=== PATIENT | male | born 1965 | race Caucasian/White ===

== ENCOUNTER 2018-06-19 06:07 | Day surgery (SDC) | payer OTHER ==
[2018-06-18 10:59] VITALS: BMI 31.9
[2018-06-19] MEDS ORDERED: Lidocaine 1% (PF) 30 ML VIAL ONE ×2 (06:25→06:51)
[2018-06-19] MEDS ORDERED: Clindamycin/D5W 600 mg/50 ml Premix Bag ONE (06:42)
[2018-06-19 06:50] LABS: #Basophils 0.1 thou/uL (0.0-0.2); #Eosinphils 0.2 thou/uL (0.0-0.7); #Lymphocytes 2.1 thou/uL (1.20-3.40); #Monocytes 0.5 thou/uL (0.11-0.59); #Neutrophils 3.7 thou/uL (1.40-6.50); %Basophils 1.5 % (0.0-1.0); %Eosinophils 2.8 % (0.0-10.0); %Monocytes 8.2 % (0.0-10.0); %Neutrophils 55.5 % (42.0-75.0); Hemoglobin 14.1 g/dL (14.0-18.0); Mean Corpuscular HGB CONC 32.4 g/dL (32.0-36.0); Mean Corpuscular Hemoglobin 29.2 pg (27.0-31.0); Mean Corpuscular Volume 90.2 fL (78.0-98.0); Mean Platelet Volume 7.4 fL (7.4-10.4); Platelet Count 397 thou/uL (130-400); RBC Distribution Width 11.8 % (11.5-14.5); Red Blood Cell (RBC) Count 4.83 mill/uL (4.70-6.10); White Blood Cell (WBC) Count 6.6 thou/uL (4.8-10.8)
[2018-06-19] MEDS ORDERED: Fentanyl 250 MCG/5 ML VIAL ONE (06:55)
[2018-06-19 07:09] LABS: Anion Gap 14 mmol/L (10-20); BUN (Urea Nitrogen) 16 mg/dL (8.4-25.7); Calc. Creatinine Clearance 125 mL/min (70-130); Calcium 9.5 mg/dL (7.8-10.44); Carbon Dioxide 21 mmol/L (22-29); Chloride 108 mmol/L (98-107); Estimated GFR-MDRD 87; Glucose 99 mg/dL (70-105); Potassium 4.1 mmol/L (3.5-5.1); Sodium 139 mmol/L (136-145)
--- NOTE | 2018-06-19 12:30 | OP ---
DATE OF PROCEDURE: 06/19/2018 PREOPERATIVE DIAGNOSIS: Left-sided cubital tunnel syndrome. POSTOPERATIVE DIAGNOSIS: Left-sided cubital tunnel syndrome. PROCEDURES PERFORMED: 1. Left open cubital tunnel release with ulnar nerve transposition. 2. Removal of the bony loose body just distal to the cubital tunnel, which was approximately 2 cm in diameter. 3. Placement of long arm splint left upper extremity. RECYCLING CENTER OPERATOR: None. ESTIMATED BLOOD LOSS: Minimal. COMPLICATIONS: None. ANESTHESIA: He had general anesthetic. DISPOSITION: He did go to Recovery Room in stable condition. INDICATIONS: This 53-year-old male comes in complaining of left hand numbness, tingling, and weakness. On EMG/NCV, he had significant cubital tunnel and at this time, he opted to have his nerve release. DESCRIPTION OF PROCEDURE: After all appropriate consent forms were explained and signed, he was taken to the operating room and at this time was given general anesthetic. Once the anesthesia was appropriate, tourniquet was placed on left arm as proximal as possible and the left upper extremity was prepped and draped in standard surgical fashion. At this time, the limb was exsanguinated and tourniquet was taken to 300 mmHg. Under loupe magnification, a 10 blade was used to incise down through skin only. Bipolar cautery was then used to coagulate any brisk venous bleeding. From here forward, scissor dissection was used using loupe magnification to dissect out the ulnar nerve. Proximally, the nerve appeared to be in good condition, appeared fairly normal in appearance and was released all the way to mid brachium. As we came down through the cubital tunnel, some very thick tissue was released off the nerve and as we went distally and just distal to the cubital tunnel, there was a bony body in the soft tissues, which was actually compressing the nerve from the inferior or posterior aspect. This was very carefully removed as it appeared to be just around the 1st motor branch. A [place] elevator was used to just kind of free up this piece of bone and finally it was worked loose and removed. Again, it was approximately 2 cm in diameter. Once this was done, the nerve appeared to be fully decompressed. We then placed multiple Vicryl sutures to close our tissue of the cubital tunnel, so that the nerve would not be able to fall back into the cubital tunnel. Soft tissue was removed off the flexor mass, so that the nerve could lie on top of this. We then placed a moist Ray-Wilver sponge. Tourniquet was let down. Bipolar cautery was used for any brisk venous bleeding. The wound was thoroughly irrigated. The nerve appeared to be intact. It was very edematous. At this time, the entire middle portion of the nerve appeared to be an hourglass, where it was compressed proximal as well as the compression from the piece of bone, but again the nerve was again found to be intact. At this time, local was infiltrated on the soft tissue flaps anteriorly and posteriorly. We then used 2-0 Vicryl multiple nylon sutures to close skin. A bulky sterile soft tissue dressing was applied as well as a long-arm splint. The patient was then awakened and he was taken to Recovery Room in stable condition. All counts were correct at the end of the case and he did receive preoperative IV antibiotics. Job ID: [id number]
[2018-06-19] MEDS ORDERED: Lidocaine 1% PF 5 ML VIAL ONE (16:43)
[2018-06-19] MEDS ORDERED: Ondansetron PF 4 MG/2 ML Vial ONE (16:43)
[2018-06-19] MEDS ORDERED: PROPOFOL 200 MG/20 ML VIAL ONE (16:43)
--- NOTE | 2018-06-19 21:12 | EKG ---
Test Reason : PREOP Blood Pressure : / mmHG Vent. Rate : 080 BPM Atrial Rate : 080 BPM P-R Int : 188 ms QRS Dur : 084 ms QT Int : 376 ms P-R-T Axes : 054 -50 007 degrees QTc Int : 433 ms Normal sinus rhythm Left axis deviation Inferior-posterior infarct , age undetermined Abnormal ECG No previous ECGs available Confirmed by Thao ZHU ([id number]) on 06/19/2018 9:11:54 PM Referred By: BIPIN Confirmed By:Thao ZHU
== END 2018-06-19 10:45 | disposition home or self-care (01) ==
LOC: SDC 06:07
PROVIDERS: ATTEND Orthopaedic Surgery
PROC: 01N40ZZ Release Ulnar Nerve, Open Approach (ICD-10-PCS; principal; 2018-06-19)
DX: G56.22 Lesion of ulnar nerve, left upper limb (principal); E03.9 Hypothyroidism, unspecified; E78.00 Pure hypercholesterolemia, unspecified; K21.9 Gastro-esophageal reflux disease without esophagitis; I10 Essential (primary) hypertension; K58.9 Irritable bowel syndrome, unspecified; E55.9 Vitamin D deficiency, unspecified; Z79.899 Other long term (current) drug therapy; Z88.0 Allergy status to penicillin
CPT/HCPCS: 36415; 80048; 85025; 93005; 93010; J2001; J2405; J2704; J3010; J3490